=== PATIENT | female | born 1980 | race Caucasian/White ===

== ENCOUNTER 2024-02-03 20:42 | Emergency (ER) | payer BC, SELFPAY ==
[2024-02-03 20:45] VITALS: BP 102/65; PULSE 80; RESP 16; TEMP 35.8; O2SAT 100; BMI 22.9
--- NOTE | 2024-02-03 20:53 | ED.GENADULT ---
HPI - General Adult General Chief complaint: Headache/Migraine Stated complaint: Severe headache Time Seen by Provider: 02/03/24 20:46 History of Present Illness HPI narrative: Pt reports a headache over past two days. Called in to work today because of headache. Needs to work tomorrow and does not want to call in again. Pt reports pain / . Pt has a history of migraines. Pain is over both eyes and creeping down right side of face, pt states this is normal . No reported trauma. 43-year-old woman presenting to the emergency department with concern of a headache. Does have a history of migraines. She reports though history of trigeminal neuralgia as well. Does take Lamictal? This flare though has been going on for a couple of days. She has taken rizatriptan and various [id number] Excedrin products. Also even Tylenol sinus. She is describing sometimes shocking pain in the right face anterior to the ear. Initially was not sure that it was a flare of trigeminal neuralgia but seems to have settled to be more like that. Even gets down into her teeth. The pain is familiar and typically what works is a shot of Toradol. She would like to receive that. No new weakness or loss of sensation elsewhere. Related Data Allergies Allergy/AdvReac Type Severity Reaction Status Date / Time No Known Drug Allergies Allergy Verified 02/03/24 20:50 Review of Systems Status of ROS: Reports: 6 or more systems reviewed and unremarkable except as noted in History and below Exam Narrative: Exam Narrative: Pleasant. Still. NAD otherwise. Cranial nerves 2-12 are intact. No apparent loss of motor also with moving all extremities without difficulty. Sensitive to percussion in the right side of her face posterior to zygoma. No rashes noted. Neck is supple. No trapezial and paracervical muscle tension/pain. Const: Vital Signs, click to edit/add: Vital Signs - 24 hr 02/03/24 20:45 Temperature 96.5 F L Pulse Rate [Left P ulse Oximeter] 80 Respiratory Rate 16 Blood Pressure [Ri ght Upper Arm] 102/65 Pulse Oximetry 100 Oxygen Delivery Me thod Room Air Documenting provider has reviewed patient's vital signs: yes Course Vital Signs Vital signs: Initial Vital Signs Temperature 96.5 F L 02/03/24 20:45 Temperature Source Temporal Artery Scan 02/03/24 20:45 Pulse Rate 80 02/03/24 20:45 Pulse Rhythm Regular 02/03/24 20:45 Respiratory Rate 16 02/03/24 20:45 Blood Pressure 102/65 02/03/24 20:45 Blood Pressure Mean 77 02/03/24 20:45 Blood Pressure Position Sitting 02/03/24 20:45 Pulse Oximetry 100 02/03/24 20:45 Oxygen Delivery Method Room Air 02/03/24 20:45 Vital Signs Temperature 96.5 F L 02/03/24 20:45 Pulse Rate 80 02/03/24 20:45 Respiratory Rate 16 02/03/24 20:45 Blood Pressure 102/65 02/03/24 20:45 Pulse Oximetry 100 02/03/24 20:45 Oxygen Delivery Method Room Air 02/03/24 20:45 Temperature 96.5 F L 02/03/24 20:45 Pulse Rate 80 02/03/24 20:45 Respiratory Rate 16 02/03/24 20:45 Blood Pressure 102/65 02/03/24 20:45 Pulse Oximetry 100 02/03/24 20:45 Oxygen Delivery Method Room Air 02/03/24 20:45 Medications Administered Medications: Discontinued Medications Generic Name Dose Route Start Last Admin Trade Name Freq PRN Reason Stop Dose Admin Dexamethasone 10 mg 02/03/24 21:00 02/03/24 21:08 Dexamethasone 4 Mg Tablet PO 02/03/24 21:01 10 mg ONCE ONE Administration Ketorolac Tromethamine 60 mg 02/03/24 21:00 02/03/24 21:07 Ketorolac 60 Mg/2 Ml Inj IM 02/03/24 21:01 60 mg ONCE ONE Administration Medical Decision Making [facility] Narrative Medical decision making narrative: This discomfort is familiar. At a minimum it is headache. She has treatment for trigeminal neuralgia. Will treat with what she says works. No other red flags noted to suggest intracranial phenomenon. No symptoms otherwise to suggest stroke-like event. It also though offer dexamethasone ingestion to request ketorolac. She feels comfortable leaving the ER after treatment as ?it usually works?. See patient discharge for further discussion. Discharge Plan Discharge Clinical Impression: Headache Patient Disposition: Home, Self-Care Condition: Stable Additional Instructions: Stay well-hydrated. Try to get quality and regular sleep. Return as needed. Follow Up/Referrals: Juanito Santillan MD [Primary Care Provider] - Stand Alone Forms: [facility] Info Instructions
[2024-02-03] MEDS: KETOROLAC 60 MG/2 ML inj IM (21:07)
[2024-02-03] MEDS: dexAMETHasone 4 MG TABLET 10 MG PO (21:08)
== END 2024-02-03 21:22 | disposition home or self-care (01) ==
LOC: ED 21:15
PROVIDERS: Emergency Provider Family Medicine; PCP Family Medicine
DX: R51.9 Headache, unspecified (principal)
CPT/HCPCS: 96372; 99284; A9270; J1885

== ENCOUNTER 2024-03-07 23:33 | Emergency (ER) | payer BC, SELFPAY ==
[2024-03-07 23:37] VITALS: BP 142/82; PULSE 97; RESP 16; TEMP 36.6; O2SAT 98; BMI 23.0
--- NOTE | 2024-03-08 00:14 | ED_ITS ---
HPI - Headache General Date Seen: 03/08/24 Chief Complaint: Headache/Migraine Stated Complaint: headache Time Seen by Provider: 03/07/24 23:39 Source: patient Mode of arrival: ambulatory Limitations: no limitations History of Present Illness HPI Narrative: Patient is a 43-year-old female who presents here with a headache, she describes across her by temporal area, it has been for 2 days, worse when she lays back better when she sits up. She is worried about a possible sinus infection but she has no nasal discharge, no fevers no chills she has no history of trauma, she does get headaches, but this seems to be just a little bit different than her normal headaches, but when I review of the notes, it seems to be much the same. She did try some Tylenol Advil at home. Has not been able to get any relief was unable to really sleep well last night. Denies any numbness tingling neck stiffness fevers chills or sweats, she has no rashes no one else at home is sick. She sometimes does use rizatriptan for this but did not take any today. In the past she has gotten relief from Toradol, and is requesting that today. She has not vomited but says she feels like she might. MD elicited complaint: headache Onset (ago): day(s) Onset description: gradually Location: frontal Severity: severe Quality & Timing: aching and throbbing Relieving factors: rest and dark room Associated symptoms: nausea Related Data Allergies Allergy/AdvReac Type Severity Reaction Status Date / Time No Known Drug Allergies Allergy Verified 03/07/24 23:40 Review of Systems Status of ROS: Reports: 10 or more systems reviewed and unremarkable except as noted in History and below Exam Narrative: Exam Narrative: On examination in room 1, she is nontoxic speaking to me in full sentences very nice lady. Her pupils are equal round reactive to light she does not have nystagmus, TMs bilaterally are normal oropharynx is normal with normal mouth opening, no palpable tenderness noted over her maxillary or frontal sinuses. Nasal mucosa shows no evidence of engorgement or purulence, bilaterally barbosa little bit of a nasal deviation to the left is noted. Cranial nerves 3-12 are normal, her neck is supple full range of motion absence of meningismus there is no lymphadenopathy. Chest is good air entry bilaterally with no wheezing crackles noted her heart sounds are normal, she moves all extremities independently and well right-hand dominant but it fingers nose testing and fine motor movements are normal she is able to walk normally, skin reveals absence of rashes. Const: Vital Signs, click to edit/add: Vital Signs - 24 hr 03/07/24 23:37 Temperature 97.9 F Pulse Rate [Right Pulse Oximeter] 97 Respiratory Rate 16 Blood Pressure [Ri ght Upper Arm] 142/82 H Pulse Oximetry 98 Oxygen Delivery Me thod Room Air Documenting provider has reviewed patient's vital signs: yes Course Vital Signs Vital signs: Initial Vital Signs Temperature 97.9 F 03/07/24 23:37 Temperature Source Temporal Artery Scan 03/07/24 23:37 Pulse Rate 97 03/07/24 23:37 Pulse Rhythm Regular 03/07/24 23:37 Pulse Strength 3+ Normal 03/07/24 23:37 Respiratory Rate 16 03/07/24 23:37 Blood Pressure 142/82 H 03/07/24 23:37 Blood Pressure Mean 102 03/07/24 23:37 Blood Pressure Position Sitting 03/07/24 23:37 Pulse Oximetry 98 03/07/24 23:37 Oxygen Delivery Method Room Air 03/07/24 23:37 Vital Signs Temperature 97.9 F 03/07/24 23:37 Pulse Rate 97 03/07/24 23:37 Respiratory Rate 16 03/07/24 23:37 Blood Pressure 142/82 H 03/07/24 23:37 Pulse Oximetry 98 03/07/24 23:37 Oxygen Delivery Method Room Air 03/07/24 23:37 Temperature 97.9 F 03/07/24 23:37 Pulse Rate 97 03/07/24 23:37 Respiratory Rate 16 03/07/24 23:37 Blood Pressure 142/82 H 03/07/24 23:37 Pulse Oximetry 98 03/07/24 23:37 Oxygen Delivery Method Room Air 03/07/24 23:37 MDM - Headache MDM Narrative Medical decision making narrative: Life-threatening differential diagnosis include subarachnoid hemorrhage, meningitis, encephalitis, carbon monoxide poisoning, and intracerebral hemorrhage. Other differential diagnosis include but not limited to migraine, cluster headache, tension headache, EXTRUDER OPERATOR MULTIPLE vasculitis, mass lesion, temporal arteritis, click acute closed angle glaucoma, septal and trigeminal neuralgia, sinusitis, closed head injury, and stroke She appears well, I do think there is a component of a tension versus migraine headache possibly with sinus dysfunction but I do not see evidence of infectious etiology here. I think it would be reasonable to give her Toradol and also dexamethasone she received this last time along with some Zofran. I think if she uses some nasal corticosteroid. Differential Diagnosis Differential diagnosis: Likely migraine, tension headache, subarachnoid hemorrhage, headache, meningitis, sinusitis and postconcussion syndrome Medical Records Attestation: I reviewed the patient's medical records. Medical records narrative: Reviewed the previous visit here. Discharge Plan Discharge Clinical Impression: Headache, Migraine Patient Disposition: Home, Self-Care Condition: Stable Instructions: Migraine Headache (ED), Tension Headache (ED), Acute Headache (DC) Additional Instructions: Home, rest, consider using Flonase 1 squirt per nostril once a day for the next 2-3 weeks. I do think this is more likely related to her headache, and sinus dysfunction I do not think this is a sinus infection per. You may supplement tomorrow with Tylenol and Advil, follow-up with primary care as needed or back in the ER if increasing headaches, fevers chills neck pain, or signs of infection. May need to consider not working tomorrow, and sleep Activity Level: Light activity Follow Up/Referrals: Juanito Santillan MD [Primary Care Provider] - Stand Alone Forms: [employer] Info Instructions
[2024-03-08] MEDS: ONDANSETRON ODT 4 MG TAB PO (00:19)
[2024-03-08] MEDS: KETOROLAC 30 MG/ML inj IM (00:19)
[2024-03-08] MEDS: dexAMETHasone 4 MG TABLET 10 MG PO (00:24)
== END 2024-03-08 00:30 | disposition home or self-care (01) ==
LOC: ED 03-08 00:14
PROVIDERS: Emergency Provider Family Medicine; PCP Family Medicine
DX: R51.9 Headache, unspecified (principal)
CPT/HCPCS: 96372; 99283; 99284; A9270; J1885

== ENCOUNTER 2024-08-10 04:55 | Emergency (ER) | payer BC, SELFPAY ==
[2024-08-10 04:58] VITALS: BP 121/81; PULSE 96; RESP 16; TEMP 37.3; O2SAT 99; BMI 26.2
--- OUTSIDE RECORDS SUMMARY | 2024-08-10 04:58 | XMS_ITS | Clinical Summary ---
Author Organization [facility] Address [address] [place] [id number] Care Team Providers Care Optical Manufacturing Technician Name Role Phone Clint Stevens MD Primary Care Provider [phone] Allergies Active Allergy Reactions Criticality Noted Date Comments Amoxicillin GI Upset 03/08/2018 Medications pantoprazole (PROTONIX) 20 mg tablet Take 1 Tab by mouth. 06/11/2016 Active DULoxetine (CYMBALTA) 20 mg Delayed-release capsule Take 20 mg by mouth. Active gabapentin (NEURONTIN) 300 mg capsule Take 300 mg by mouth. 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 Gender Identity Not on file Sexual Orientation Not on file Obstetrics History Para Term AB IAB SAB Ectopic Multiple Livin g Live Births 3 2 2 0 1 2 Date Outcome GA Total Labor Labor/2nd/3rd Weight Sex Type Anes PTL Radha A1 A5 Name Clin Term Term AB Last Filed Vital Signs Vital Sign Reading Time Taken Comments Blood Pressure 113/75 11/29/2022 9:52 PM CDT Pulse 65 11/29/2022 9:52 PM CDT Temperature 36.7 C (98 F) 11/29/2022 8:31 PM CDT Respiratory Rate 16 11/29/2022 8:31 PM CDT Oxygen Saturation 98% 11/29/2022 9:52 PM CDT Inhaled Oxygen Concentration - - Weight 64.9 kg (143 lb) 11/29/2022 8:31 PM CDT Height 160 cm (5' 3) 11/29/2022 8:31 PM CDT Body Mass Index 25.33 11/29/2022 8:31 PM CDT Plan of Treatment Health Maintenance Due Date Last Done Comments Tdap 12/28/1990 Depression screening for age 12+ 1991 HIV for age 15-65 12/28/1994 Hepatitis C screening for age 18-79 12/28/1997 Hepatitis B series for 19+ (1 of 3 - 19+ 3-dose series) 12/28/1998 Tetanus booster 1999 Pap test for age 21-65 12/28/2000 BMI (ht and wt on same day) for age 18+ 01/07/2020 01/06/2019, 11/22/2018, 08/27/2018, Additional history exists COVID-19 vaccine series ( season) 2023 04/06/2021, 07/11/2020, 06/13/2020 Influenza Vaccine (Season Ended) 2024 Pneumococcal series for age 6-49 Aged Out No longer eligible based on patient's age to complete this topic Insurance [place] [place] [address] [facility] Care Teams Optical Manufacturing Technician Relationship Specialty Start Date End Date Clint Stevens MD PCP - General Family Practice 07/21/18
--- OUTSIDE RECORDS SUMMARY | 2024-08-10 04:58 | XMS_ITS | Clinical Summary ---
Author Organization [facility] Address [address] [place] [id number] Care Team Providers Care Director Biostatistics Name Role Phone Grace Metz M.D. Primary Care Provider Source Comments Patient records contain information from all sites at [facility]. For routine questions regarding patient records, call [phone] during business hours, M-F 8:00 AM - 5:00 PM Central Time. Record requests for emergency care only can be directed to [phone] at any time.[facility] Allergies Active Allergy Reactions Criticality Noted Date Comments Amoxicillin GI intolerance 03/08/2018 Medications citalopram (CeleXA) 20 mg tablet Take 20 mg by mouth daily. 0 Active omeprazole (PriLOSEC) [address] capsule Take 20 mg by mouth every morning before breakfast. Active topiramate (TOPAMAX) 25 mg tablet Take 25 mg by mouth daily. 2 Active rizatriptan ARCHERY EQUIPMENT HAY SORTER (MAXALT-ARCHERY EQUIPMENT HAY SORTER) [address] 2 TABLETS UNDER THE TONGUE AT ONSET OF HEADACHE. REPEAT AFTER 2 HOURS IF HEADACHE PERSISTS 2 Active ferrous gluconate (FERGON) 324 mg (38 mg iron) tablet TAKE 1 TABLET BY MOUTH ONCE DAILY AT NIGHT AT BEDTIME (WITH VITAMIN TABLET) 3 Active ascorbic acid 500 mg tablet Take 1 tablet by mouth daily. 3 Active cholecalciferol (VITAMIN D3) 125 mcg (5,000 Unit) capsule Take 1 capsule by mouth daily. 3 Active Drysol Dab-O-Matic 20 % external solution USE AT BEDTIME. ONCE SWEATING DECREASES, DECREASE USE TO 1-2 TIMES WEEKLY. 3 Active LORazepam (ATIVAN) 0.5 mg tablet Take 1 tablet (0.5 mg total) by mouth 2 (two) times a day as needed for anxiety for up to 8 days. 15 tablet 4 Active albuterol 90 mcg/actuation inhaler 1-2 puffs every 4-6 hours prn 18 g 1 4 Active gabapentin (Neurontin) 300 mg capsule Take 1 capsule (300 mg total) by mouth 3 (three) times a day for 14 days. 42 capsule 4 Active Active Problems Problem Noted Date Diagnosed Date Trigeminal Neuralgia 03/18/2023 Panic Disorder Episodic Paroxysmal Anxiety 03/18 Resolved Problems Problem Noted Date Diagnosed Date Resolved Date Depression Anxiety 06/11/2016 9 Overview (07/29/2016): Depression Anxiety Gastroesophageal Reflux Disease NOS 06/11/2016 03/18/2023 Encounters Date Type Department Care Team Description 08/09/2024 [facility] Grace Lomas M.D. Screening Lipid; Screening Mammogram Breast Cancer 05/10/2024 Orders Only [facility] Grace Lomas M.D. from Last 3 Months Immunizations Immunization Administration Dates Next Due DTP 10/18/1985 OPV 10/18/1985 SARS-COV-2 (COVID-19) - MODERNA(Discontinued) ,06/13/2020 Tdap 03/16/2013 Family History Medical History Relation Name Comments Coronary artery disease Father Lorenzo Skin cancer Father Lorenzo Anxiety disorder Paternal Grandmother [place] Depression Paternal Grandmother [place] ADD Son Herman Relation Name Status Comments Father Lorenzo Paternal Grandmother [place] Son Herman Social History Tobacco Use Types Packs/Day Years Used Date Smoking Tobacco: Heavy Smoker Cigarettes 1 5.6 Started: 12/21/2018 Smokeless Tobacco: Never Tobacco Cessation:Ready to Q uit: Not Asked; Counseling Given: Not Answered Alcohol Use Standard Drinks/Week Comments Never 0 (1 standard drink = 0.6 oz pur e alcohol) Humiliation, Afraid, Rape, and Kick questionnair e Answer Date Recorded Fear of Current or Ex-Partner No Emotionally Abused No 02/08/2019 Physically Abused No 02/08/2019 Sexually Abused No 02/08/2019 Social Connection and Isolat ion Panel [NHANES] Answer Date Recorded Frequency of Communication w ith Friends and Family More than three times a week 02/08/2019 Frequency of Social Gatherin gs with Friends and Family Once a week 02/08/2019 Attends [employer] Services More than 4 times per year 02/08/2019 Active Member of Clubs or Organizations Yes 02/08/2019 Attends Club or Organization Meetings More than 4 times per year 02/08/2019 Marital Status 02/08/2019 AUDIT-C Answer Date Recorded Frequency of Alcohol Consumption Not on file 11/21/2019 Q2: How many drinks containi ng alcohol do you have on a typical day when you are drinking? 1 or 2 11/21/2019 Q3: How often do you have si x or more drinks on one occasion? Less than monthly 11/21/2019 Overall Financial Resource Strain (CARDIA) Answe r Date Recorded How hard is it for you to pa y for the very basics like food, housing, medical care, and heating? Not hard at all 12/03/2022 PHQ-2 Answer Date Recorded PHQ-2 Score 0 03/18/2023 [facility] of Occupat ional Health - Occupational Stress Questionnaire Answer Date Recorded Do you feel stress - tense, restless, nervous, or anxious, or unable to sleep at night because your mind is troubled all the time - these days? Only a little 11/21/2019 Exercise Vital Sign Answer Date Recorde d On average, how many days pe r week do you engage in moderate to strenuous exercise (like a brisk walk)? 2 days 12/03/2022 On average, how many minutes do you engage in exercise at this level? 30 min 12/03/2022 Hunger Vital Sign Answer Date Recorded Within the past 12 months, y ou worried that your food would run out before you got the money to buy more. Never true 12/04/19 23 Within the past 12 months, t he food you bought just didn't last and you didn't have money to get more. Never true 12/03/2022 PRAPARE - Transportation Answer Date Re corded In the past 12 months, has l ack of transportation kept you from medical appointments or from getting medications? No 11/08 In the past 12 months, has l ack of transportation kept you from meetings, work, or from getting things needed for daily living? No 12/03/2022 Nutrition Answer Date Recorded On average, how many serving s of fruits and vegetables do you eat per day (serving size is equal to 1 cup or approximately the size of a tennis ball)? 0-2 12/03/2022 Dental Answer Date Recorded Dental: Regular Dentist Unknown 11/28/19 Employment Answer Date Recorded Employment status Employed and actively working without restrictions 12/03/2022 Housing Stability Answer Date Recorded What is your living situation today? I have a [facility] place to live 12/03/2022 Education Answer Date Recorded What is the highest level of school you have completed or the highest degree you have received? Some college, no degree 02/08/2019 Comments Unknown Sex and Gender Information Value Date Recorded Sex Assigned at Female 12/03/2022 12:53 PM CDT Legal Sex Female 6:44 AM BILINGUAL MEDICAL ASSISTANT Gender Identity Female 11/21/2019 8:51 AM CDT Sexual Orientation Straight 11/21/2019 8: 51 AM CDT Last Filed Vital Signs Vital Sign Reading Time Taken Comments Blood Pressure 111/82 11/18/2023 7:30 PM CDT Pulse 64 11/18/2023 8:20 PM CDT Temperature 36.7 C (98.1 F) 11/18/2023 7:26 PM CDT Respiratory Rate 16 06/25/2023 3:37 PM CDT Oxygen Saturation 97% 11/18/2023 8:2 0 PM CDT Inhaled Oxygen Concentration - - Weight 61.6 kg (135 lb 12.9 oz) 11/18/2023 7:26 PM CDT Height 157.8 cm (5' 2.13) 03/18/2023 3 :24 PM BILINGUAL MEDICAL ASSISTANT without shoes Body Mass Index 24.74 03/18/2023 3:24 PM BILINGUAL MEDICAL ASSISTANT Plan of Treatment Health Maintenance Due Date Last Done Comments Cervical/Vaginal Cancer Screening 1979 HIV Screening 1979 Hepatitis C Screening 1979 Lipid (Cholesterol) Screening 1979 IPV Vaccines (2 of 3 - 4-dos e series) 11/15/1985 10/18/1985 Hepatitis B Vaccines (1 of 3 - 19+ 3-dose series) 12/28/1998 Pneumococcal vaccine (0-49 years) (1 of 2 - PCV) 12/28/1998 Mammogram 10/29/2016 10/30/2015 COVID-19 Vaccine (4 - 2023-2 5 season) 2023 04/06/2021, 07/11/2020, 06/13/2020 Influenza Vaccine (#1) 2023 , 12/08/2020, 12/14/2019 Depression Screening (Annual PHQ-2) 03/09/2024 Tobacco Cessation counseling 10/20/2024, 03/18/2023 DTaP,Tdap,and Td Vaccines (4 - Td or Tdap) 01/08/2031 01/08/2021, 03/16/2013, 10/18/1985 HPV Vaccines Aged Out No longer eligi ble based on patient's age to complete this topic [place] [address] [facility] Care Teams Director Biostatistics Relationship Specialty Start Date End Date Grace Metz M.D. NPVivian: [id number] [address] [place] [id number] PCP - General Family Medicine 12/10/22
--- OUTSIDE RECORDS SUMMARY | 2024-08-10 04:58 | XMS_ITS | Clinical Summary ---
Author Organization [facility] Address [address] , [address] [place] [address] Phone Care Team Providers Care Claims Account Specialist Name Role Phone Thursday Solitario GILBERT [phone] Conditions or Problems Problem Name Problem Code Onset Date Status Entry Date Provider Comment Standard Description Annotate Dizziness [id number] (SNOMED CT) 11/12 Active 11/12 Xiomara Du APRN, CNP Dizziness New daily persistent headache [id number] 05 (SNOMED CT) 11/12 Active 11/12 Xiomara Du APRN SHOE STAMPER New daily persistent headache Sleep deprivation 184019583 (SNOMED CT) 03/12 Active 03/12 Solitario Thursday Sleep deprivation Restless leg syndrome 25917693 (SNOMED CT) 03/12 Active 03/12 Solitario Thursday Restless legs Iron deficiency 53489452 (SNOMED CT) 03/12 Active 03/12 Solitario Thursday Iron deficiency Periodic limb movement disorder 316067117 (SNOMED CT) 10/30 Active Solitario Thursday Periodic limb movement disorder Obstructive sleep apnea 06068620 (SNOMED CT) 10/30 Active Solitario Thursday Obstructive sleep apnea syndrome Sleep apnea, evaluation 271832148 (SNOMED CT) 09/25 Active 09/25 Nubia PEREZ-Jordana Procedure carried out on subject Insomnia 343519157 (SNOMED CT) 09/25 Active 09/25 Nubia Aguilar PA-C Insomnia Trigeminal neuralgia 95930059 (SNOMED CT) 07/26 Active 07/26 Chris Carrillo MD Trigeminal neuralgia Medications Medication Instructions Start Date Stop Date Generic Name NDC Provider TOPIRAMATE 50 MG TABS Take 1 tablet by mouth twice a day topiramate [id number] Ria milagros PEREZ-C TOPIRAMATE 50 MG TABS Take 1 tablet by mouth twice daily topiramate 13658446116 Ria Patelrashaadmayra PA-C TOPIRAMATE 50 MG TABS Take 1 tablet by mouth twice a day topiramate 44652408774 Chris Carrillo MD TOPIRAMATE 25 MG TABS Take 2 tablet by mouth once a day topiramate 04111145263 Yoana Stone RN, BSN TOPIRAMATE 25 MG TABS Take 1 tablet by mouth once a day TAKE ONE TABLET BY MOUTH ONCE DAILY topiramate 47760986404 Riabob Isaacs PA-C TOPIRAMATE 25 MG TABS Take 2 tablet by mouth once a day topiramate 69932045106 Ria Merashaadmayra PA-C FERROUS GLUCONATE 324 (38 Fe) MG TABS TAKE 1 TABLET BY MOUTH ONCE DAILY AT NIGHT AT BEDTIME (WITH VITAMIN TABLET) ferrous gluconate 91467643825 Tacjana Thursday FERROUS GLUCONATE 324 (38 Fe) MG TABS TAKE 1 TABLET BY MOUTH ONCE DAILY AT NIGHT AT BEDTIME ferrous gluconate 04942492688 Ria rashaadmayra PA-C TOPIRAMATE 25 MG TABS Take 1 tablet by mouth once a day TAKE ONE TABLET BY MOUTH ONCE DAILY topiramate 56827241924 Chris Carrillo MD FERROUS GLUCONATE 324 (38 Fe) MG TABS TAKE ONE TABLET BY MOUTH EVERY NIGHT AT BEDTIME (WITH VITAMIN TABLET) ferrous gluconate 33103352079 Tacjana Thursday FERROUS GLUCONATE 324 (38 Fe) MG TABS TAKE 1 TABLET BY MOUTH ONCE DAILY AT NIGHT AT BEDTIME (WITH VITAMIN TABLET) ferrous gluconate 08412434535 Solitario Thursday Vitamin C 500 mg tablet Take 1 tablet by mouth at bedtime ascorbic acid (vitamin c) 58750759252 armando Thursday FERROUS GLUCONATE 324 (38 Fe) MG TABS TAKE ONE TABLET BY MOUTH EVERY NIGHT AT BEDTIME (WITH VITAMIN TABLET) ferrous gluconate 00631547956 Solitario Thursday PREDNISONE 20 MG TABS prednisone 35602613510 Nubia Aguilar PA-C DIAZEPAM 5 MG TABS Take 5 mg 30 minutes prior to MRI. May repeat once. Must have a limo driver to and from test. diazepam 80837696552 Chris Carrillo MD TOPIRAMATE 25 MG TABS TAKE ONE TABLET BY MOUTH ONCE DAILY topiramate 38531309160 Chris Carrillo MD PREDNISONE 20 MG TABS prednisone 34876992398 Chris Carrillo MD CITALOPRAM HYDROBROMIDE 20 MG TABS citalopram 03298611861 Chris Carrillo MD Medications Administered No information available. Allergies, Adverse Reactions, Alerts Allergy Name Reaction Description Start Date Severity Statu s Provider AMOXICILLIN GI Upset Mild Active Chris Carrillo MD Results Date Name Value Unit Range Flag Description Office Visit: Office Visit F acial Pain mail SMOK STATUS current every day smoker Tobacco smoking status Internal Other: Verbal Autho rization/Emergency Contact - OBS VERBAL_EMER DONE Verbal au thorization and emergency contact Internal Other: Authorizatio n - OBS [email or web address] Yes Authoriza tion: Release of Information - Authorize [facility] - Payment and Healthcare Operations ROIAUTHOTHER Yes Authoriz ation: Release of Information - Authorize Others/Insurance - Payment and Healthcare Operations [email or web address] Yes Authorizat ion: Authorization for [facility] to leave messages, voicemail, send text messages, send emails AUTHRELHCARE Yes Authoriz ation: Release/Retrieval of Information to/from Healthcare Facilities, Pharmacy Benefit Payers and Providers AUTHPRIVPRAC Yes Authoriz ation: Notice of privacy practices AUTHBENEFIT Yes Authoriza tion: Assignment of Benefits and Payment Agreement Internal Other: Observation data from Authorization.pdf HIECONSENT Y Consent To Release information to the Health Information Exchange ([employer]) Telemedicine: Telemedicine V isit 3-4 mo flup mail MEDS REVIEW Done Documenta tion of current medications (procedure) Plan of Care Type Date Detail Pending order Follow up Sleep Pending order Follow up Sleep Pending order Ferritin Serum Pending order CPAP Order Pending order Patient Instruct ions Pending order Follow up Sleep Pending order CPAP Order Pending order Ferritin Serum Pending order Patient Instruct ions Pending order Follow up Sleep LIZZIE Pending order Follow up LIZZIE in clinic or telemedicine Pending order MRI-Brain W/O Pending order MRI-Brain W/O Pending order Iron Sucrose Inf usion Protocol for RLS Pending order Iron Sucrose Inf usion Protocol for RLS Pending Order exclud ed from report: Pending order Iron Sucrose Inf usion Protocol for RLS Pending order Ferritin Serum Pending order Patient Instruct ions Pending order Follow up in cli jermaine or telemedicine Pending order Ferritin Serum Pending order Iron & Total Iro n-binding Capacity (TIBC) Pending order Instructions for Staff Pending order Sleep Dentist Re ferral Pending order Sleep Consult Pending order Sleep Study - AP NA Pending order Follow up LIZZIE in clinic or telemedicine Pending order MRI-Brain W/WO Pending order Patient Instruct ions Procedures Code Procedure Name Date Entry Date ORDERS Follow up Sleep ORDERS Ferritin Serum ORDERS Patient Instructions ORDERS CPAP Order ORDERS Iron Sucrose Infusion Protocol for RLS 20 29/09/10 ORDERS Follow up Sleep LIZZIE ORDERS CPAP Order ORDERS Patient Instructions ORDERS Ferritin Serum [id number]-[id number] Documentation of current medicatio ns ORDERS Follow up LIZZIE in clinic or telemedicine ORDERS Iron Sucrose Infusion Protocol for RLS 20 29/07/00 ORDERS Ferritin Serum SCT-[id number] Documentation of current medicatio ns ORDERS Patient Instructions ORDERS Follow up in clinic or telemedicine 04/01 ORDERS Sleep Consult ORDERS Instructions for Staff 01/10 [id number] Sleep Dentist Referral 2021 ORDERS Ferritin Serum ORDERS Iron & Total Iron-binding Capacity (TIBC) ORDERS Sleep Study - APNA 0 CPT-52724 PSG, 4+ parameters w / tech - 6yrs or older (54130) ORDERS Follow up LIZZIE in clinic or telemedicine 2 CPT-T9658U ProHance Gadolinium- based MR Contrast - 15 ml vial CPT-08321 MRI Brain W/WO CPT-T8498D ProHance Gadolinium- based MR Contrast - 15 ml vial [id number] MRI-Brain W/WO [facility]-[id number] Documentation of current medicatio ns ORDERS Patient Instructions Vital Signs Date Name Value Unit Description Weight Measured 140 [lb_av] weight E& M Weight Measured 140 [lb_av] weight E& M Immunizations No information available. Advance Directives No information available.
--- OUTSIDE RECORDS SUMMARY | 2024-08-10 04:58 | XMS_ITS | Encounter Summary ---
Author Organization [facility] Address [address] [place] [address] Care Team Providers Care Program Coordinator Executive Education Name Role Phone Grace Metz M.D. Primary Care Provider Reason for Referral * Outpatient (Routine) - Authorized Specialty Diagnoses / Procedures Referred By Contac t Referred To Contact Diagnoses Screening Mammogram Breast Cancer Procedures BI Breast Screening Bilateral with Tomosynthesis Grace Metz M.D. [address], [place] [address] Phone: tel: fax: [facility] Referral ID Status Reason Start Date Expiration Date V isits Requested Visits Authorized [id number] Authorized 08/09/2024 11/09/2025 1 1 Encounter Details Date Type Department Care Team (Late st Contact Info) Description 08/09/2024 Orders Only [facility] Grace Metz M.D. [address] [place] [address] Screening Lipid; Screening Mammogram Breast Cancer Social History Tobacco Use Types Packs/Day Years Used Date Smoking Tobacco: Heavy Smoker Cigarettes 1 5.6 Started: 12/21/2018 Smokeless Tobacco: Never Alcohol Use Standard Drinks/Week Comments Never 0 [...] and Family Once a week 02/08/2019 Attends Confuc[employer]ism Services More than 4 times per year [...] Answer Date Recorded PHQ-2 Score 0 03/18/2023 [facility] - Occupational Stress [...] your living situation today? I have a [facility] place to live 12/03/2022 Education Answer Date Recorded What is the highest level of school you have completed or the highest degree you have received? Some college, no degree 02/08/2019 Comments Unknown Sex and Gender Information Value Date Recorded Sex Assigned at Female 12/03/2022 12:53 PM CDT Legal Sex Female 6:44 AM [employer]AST[employer] Gender Identity Female 11/21/2019 8:51 AM CDT Sexual Orientation Straight 11/21/2019 8: 51 AM CDT documented as of this encounter Plan of Treatment Scheduled Orders Name Type Priority Associated Diagnoses Order Schedule Lipid Panel Lab Routine Screening Lipid Expected: 08/23/2024, Expires: 01/26/2025 BI Breast Screening Bilateral with Tomosynthesis Imaging RAD - Routine (most inpatients and all outpatients) Screening Mammogram Breast Cancer Expected: 08/23/2024, Expires: 01/26/2025 documented as of this encounter Visit Diagnoses Diagnosis Screening Lipid Screening Mammogram Breast Cancer documented in this encounter Care Teams Program Coordinator Executive Education Relationship Specialty Start Date End Date Grace Metz M.D. [address] [place] [id number] PCP - General Family Medicine 12/10/22 documented as of this encounter
--- OUTSIDE RECORDS SUMMARY | 2024-08-10 04:58 | XMS_ITS | Clinical Summary ---
Author Organization [facility] Address [address] [place] [address] Care Team Providers Care Counselor At Law Name Role Phone Clint Stevens MD Primary Care Provider [phone] Social History Tobacco Use Types Packs/Day Years Used Date Smoking Tobacco: Never Assessed Adolescent Education Answer Date Record ed Getting School Help Needed Not on file 11/28 Comments Unknown Sex and Gender Information Value Date Recorded Sex Assigned at Not on file Legal Sex Female 10:51 AM CDT Gender Identity Not on file Sexual Orientation Not on file Plan of Treatment Health Maintenance Due Date Last Done Comments ADVANCE CARE PLANNING 1979 ANNUAL REVIEW OF HM ORDERS 1979 DIABETES SCREENING 1979 YEARLY PREVENTIVE VISIT 12/28/1982 HIV SCREENING 12/28/1994 HEPATITIS C SCREENING 12/28/1997 HEPATITIS B VACCINE (1 of 3 - 19+ 3-dose series) 12/28/1998 PAP 12/28/2000 LIPID 2019 COVID-19 VACCINE (4 - 2023-2 5 season) 2023 04/06/2021, 07/11/2020, 06/13/2020 PHQ-2 (once per calendar year) 2024 MAMMO SCREENING 10/17/2024 10/17/2022, 03/06/2020, 10/30/2015 INFLUENZA VACCINE (Season Ended) 2024 12/08/2020, 12/14/2019 ZOSTER VACCINE (1 of 2) 12/28/2029 DTAP/TDAP/TD VACCINE (4 - Td or Tdap) 01/08/2031 01/08/2021, 03/16/2013, 10/18/1985 HPV VACCINE Aged Out No longer eligi ble based on patient's age to complete this topic MENINGITIS VACCINE Aged Out No longer eligible based on patient's age to complete this topic PNEUMOCOCCAL VACCINE: PEDIATRICS (0 to 5 YEARS) AND AT-RISK PATIENTS (6 to 49 YEARS) Aged Out No longer eligible b ased on patient's age to complete this topic Procedures Procedure Name Priority Date/Time Associated Diagnosis Comments MA SCREENING DIGITAL BILATERAL Routine 10/17/2022 10:50 AM CDT Healthcare maintenance from Last 3 Months or Most Recently Relevant to Health Maintenance Results * MA Screening Digital Bilateral (10/17/2022 10:50 AM CDT) Anatomical Region Laterality Modality Breast Bilateral Mammography Impressions 10/17/2022 1:54 PM CDT IMPRESSION: ACR BI-RADS Category 1: Negative RECOMMENDED FOLLOW-UP: Annual routine screening mammogram The results and recommendations of this examination will be communicated to the patient. Angela Cadet MD Narrative 10/17/2022 1:54 PM CDT BILATERAL FULL FIELD DIGITAL SCREENING MAMMOGRAM Performed on: 10/17/22 Compared to: 03/06/2020 and 10/30/2015 Technique: This study was evaluated with the assistance of Computer-Aided Detection. Findings: The breasts have scattered areas of fibroglandular density. There is no radiographic evidence of malignancy. us Isaias Watson MD IMG MAMMOGRAPHY ORDERA BLES Final Result from Last 3 Months or Most Recently Relevant to Health Maintenance Care Teams Counselor At Law Relationship Specialty Start Date End Date Clint Stevens MD [facility] [address] [place] [address] PCP - General Family Practice 10/30/15
--- NOTE | 2024-08-10 05:23 | ED.GENADULT ---
HPI - General Adult General Date Seen: 08/10/24 Chief complaint: Sore Throat Stated complaint: Cough chills, body ache Time Seen by Provider: 08/10/24 05:05 History of Present Illness HPI narrative: Patient is a 43-year-old woman who says she has been sick since yesterday with sore throat, ear pain, little bit of a cough, low-grade fever she thinks, she is worried she might have strep throat or tonsillitis. Related Data Home Medications ?Medication ?Instructions ?Recorded ?Confirmed dextromethorphan-guaifenesin 30 1 tab PO Q12H 05/31/24 05/31/24 mg-600 mg tablet extended [id number] hr (Mucinex DM) ascorbic acid (vitamin C) 500 mg 500 mg PO DAILY 08/10/24 08/10/24 chewable tablet (Vitamin C) cholecalciferol (vitamin D3) 125 125 mcg PO DAILY 08/10/24 08/10/24 mcg (5,000 unit) capsule citalopram 20 mg tablet 20 mg PO DAILY 08/10/24 08/10/24 ferrous gluconate 324 mg (38 mg 324 mg PO QPM 08/10/24 08/10/24 iron) tablet lorazepam 0.5 mg tablet 0.5 mg PO BID-TID anxiety 08/10/24 08/10/24 topiramate 25 mg tablet 50 mg PO DAILY 08/10/24 08/10/24 Previous Rx's ?Medication ?Instructions ?Recorded benzonatate 200 mg capsule 200 mg PO BID PRN cough #14 caps 05/31/24 Allergies Allergy/AdvReac Type Severity Reaction Status Date / Time No Known Drug Allergies Allergy Verified 05/31/24 18:26 Review of Systems Status of ROS: Reports: 6 or more systems reviewed and unremarkable except as noted in History and below Exam Narrative: Exam Narrative: Vital signs reviewed In general, alert, nontoxic middle-age woman. Breathing easily, voice normal. Head: Normocephalic, atraumatic. Eyes: Sclera clear. Pupils equal and reactive. ENT: Mucous membranes moist. Throat is normal. TMs normal bilaterally. Neck: Supple without adenopathy. No stridor. Heart: Regular rate and rhythm without murmur. Lungs: Clear. No increased work of breathing, crackles or wheezes. Neurologic: Alert, conversant. Speech fluent, face symmetric. Moves all extremities equally. Skin: Warm, dry well perfused. Affect: Normal. Const: Vital Signs, click to edit/add: Vital Signs - 24 hr 08/10/24 04:58 Temperature 99.2 F Pulse Rate [Pulse Oximeter] 96 Respiratory Rate 16 Blood Pressure [Ri ght Upper Arm] 121/81 Pulse Oximetry 99 Oxygen Delivery Me thod Room Air Course Course ED Course: Strep, COVID, RSV and influenza swabs pending. Reviewed with her no evidence of tonsillitis or abscess in the throat. If strep is negative and symptoms are likely viral and would recommend supportive care with ibuprofen and/or Tylenol ongoing, hydration, rest, she can use throat lozenges or topical medications for throat pain as well if needed. Did give her shot of Toradol 30 mg IM here to help with throat pain. Strep swab is negative. Viral swab pending at this time but reasonable to send her home with supportive care, will call with results of the viral swab positive. Reviewed reasons to return such as severe pain inability to swallow secretions, other worsening or new symptoms. Primary care follow-up if not starting to improve in 7-10 days. Vital Signs Vital signs: Initial Vital Signs Temperature 99.2 F 08/10/24 04:58 Temperature Source Temporal Artery Scan 08/10/24 04:58 Pulse Rate 96 08/10/24 04:58 Respiratory Rate 16 08/10/24 04:58 Blood Pressure 121/81 08/10/24 04:58 Blood Pressure Mean 94 08/10/24 04:58 Blood Pressure Position Sitting 08/10/24 04:58 Pulse Oximetry 99 08/10/24 04:58 Oxygen Delivery Method Room Air 08/10/24 04:58 Vital Signs Temperature 99.2 F 08/10/24 04:58 Pulse Rate 96 08/10/24 04:58 Respiratory Rate 16 08/10/24 04:58 Blood Pressure 121/81 08/10/24 04:58 Pulse Oximetry 99 08/10/24 04:58 Oxygen Delivery Method Room Air 08/10/24 04:58 Temperature 99.2 F 08/10/24 04:58 Pulse Rate 96 08/10/24 04:58 Respiratory Rate 16 08/10/24 04:58 Blood Pressure 121/81 08/10/24 04:58 Pulse Oximetry 99 08/10/24 04:58 Oxygen Delivery Method Room Air 08/10/24 04:58 Medications Administered Medications: Generic Name Dose Route Start Last Admin Trade Name Richardsonq PRN Reason Stop Dose Admin Ketorolac Tromethamine 30 mg 08/10/24 05:11 08/10/24 05:40 Ketorolac 30 Mg/Ml Inj IM 08/10/24 05:12 30 mg ONCE ONE Administration Medical Decision Making Lab Data Labs: Lab Results 08/10/24 Range/Units 05:05 Group A Strep DNA NOT DETECTED (Not Detectd) Discharge Plan Discharge Clinical Impression: Pharyngitis Patient Disposition: Home, Self-Care Condition: Stable Instructions: Pharyngitis (ED) Additional Instructions: Your strep test is negative. Symptoms are therefore most likely viral. Your viral swab is not back yet, but we can call you with those results. There is no evidence of tonsillitis or abscess on your exam today. I would recommend continued use of ibuprofen and Tylenol, these work best if taken together, 1000 mg of Tylenol and 400 mg of ibuprofen 3 times daily with food. Throat lozenges or throat sprays can be helpful as well. If you feel you are getting worse, cannot swallow saliva, or develop other new symptoms, return to the ER at any time for re-evaluation. Follow-up with primary care if you do not feel you are getting better in 7-10 days. Prescriptions: No Action Mucinex DM 30-600 mg tablet extended release 12 hr 1 tab PO Q12H benzonatate 200 mg capsule 200 mg PO BID PRN (Reason: cough) Qty: 14 0RF topiramate 25 mg tablet 50 mg PO DAILY citalopram 20 mg tablet 20 mg PO DAILY lorazepam 0.5 mg tablet 0.5 mg PO BID-TID ascorbic acid (vitamin C) [Vitamin C] 500 mg tablet,chewable 500 mg PO DAILY cholecalciferol (vitamin D3) 125 mcg (5,000 unit) capsule 125 mcg PO DAILY ferrous gluconate 324 mg (38 mg iron) tablet 324 mg PO QPM Follow Up/Referrals: Provider,Not a Local [Primary Care Provider, Family Practice] Stand Alone [facility]: [facility] Info Instructions
--- OUTSIDE RECORDS SUMMARY | 2024-08-10 05:36 | XMS_ITS | Clinical Summary ---
Author Organization [facility] Address [address] [facility] , [address] [place] [address] Phone Care Team Providers Care Lead Teller Name Role Phone Thursday Solitario GILBERT [phone] Conditions or Problems Problem Name Problem Code Onset Date Status Entry Date Provider Comment Standard Description Annotate Dizziness 739950387 (SNOMED CT) 11/12 Active 11/12 Xiomara Du APRN, CNP Dizziness New daily persistent headache 1292254536832 05 (SNOMED CT) 11/12 Active 11/12 Xiomara Du APRN CIRCUIT BOARD REPAIR TECHNICIAN New daily persistent headache Sleep deprivation 074058546 (SNOMED CT) 03/12 Active 03/12 Solitario Thursday Sleep deprivation Restless leg syndrome 79016103 (SNOMED CT) 03/12 Active 03/12 Solitario Thursday Restless legs Iron deficiency 54704914 (SNOMED CT) 03/12 Active 03/12 Solitario Thursday Iron deficiency Periodic limb movement disorder 221191161 (SNOMED CT) 10/30 Active Solitario Thursday Periodic limb movement disorder Obstructive sleep apnea 54422426 (SNOMED CT) 10/30 Active Solitario Thursday Obstructive sleep apnea syndrome Sleep apnea, evaluation 090424614 (SNOMED CT) 09/25 Active 09/25 Nubia PEREZ-Jordana Procedure carried out on subject Insomnia 451545503 (SNOMED CT) 09/25 Active 09/25 Nubia Aguilar PA-C Insomnia Trigeminal neuralgia 59283304 (SNOMED CT) 07/26 Active 07/26 Chris Carrillo MD Trigeminal neuralgia Medications Medication Instructions Start Date Stop Date Generic Name NDC Provider TOPIRAMATE 50 MG TABS Take 1 tablet by mouth twice a day topiramate 24179710681 Ria milagros PEREZ-C TOPIRAMATE 50 MG TABS Take 1 tablet by mouth twice daily topiramate 77866168369 Ria Patelrashaadmayra PA-C TOPIRAMATE 50 MG TABS Take 1 tablet by mouth twice a day topiramate 36108054813 Chris Carrillo MD TOPIRAMATE 25 MG TABS Take 2 tablet by mouth once a day topiramate 36930677534 Yoana Stone RN, BSN TOPIRAMATE 25 MG TABS Take 1 tablet by mouth once a day TAKE ONE TABLET BY MOUTH ONCE DAILY topiramate 75233002276 Riabob Isaacs PA-C TOPIRAMATE 25 MG TABS Take 2 tablet by mouth once a day topiramate 09666101106 Ria Merashaadmayra PA-C FERROUS GLUCONATE 324 (38 Fe) MG TABS TAKE 1 TABLET BY MOUTH ONCE DAILY AT NIGHT AT BEDTIME (WITH VITAMIN TABLET) ferrous gluconate 79312062876 Tacjana Thursday FERROUS GLUCONATE 324 (38 Fe) MG TABS TAKE 1 TABLET BY MOUTH ONCE DAILY AT NIGHT AT BEDTIME ferrous gluconate 22581345871 Ria rashaadmayra PA-C TOPIRAMATE 25 MG TABS Take 1 tablet by mouth once a day TAKE ONE TABLET BY MOUTH ONCE DAILY topiramate 22818254320 Chris Carrillo MD FERROUS GLUCONATE 324 (38 Fe) MG TABS TAKE ONE TABLET BY MOUTH EVERY NIGHT AT BEDTIME (WITH VITAMIN TABLET) ferrous gluconate 60653170342 Tacjana Thursday FERROUS GLUCONATE 324 (38 Fe) MG TABS TAKE 1 TABLET BY MOUTH ONCE DAILY AT NIGHT AT BEDTIME (WITH VITAMIN TABLET) ferrous gluconate 16274517154 Solitario Thursday Vitamin C 500 mg tablet Take 1 tablet by mouth at bedtime ascorbic acid (vitamin c) 90048542574 armando Thursday FERROUS GLUCONATE 324 (38 Fe) MG TABS TAKE ONE TABLET BY MOUTH EVERY NIGHT AT BEDTIME (WITH VITAMIN TABLET) ferrous gluconate 45218037217 Solitario Thursday PREDNISONE 20 MG TABS prednisone 80065446537 Nubia Aguilar PA-C DIAZEPAM 5 MG TABS Take 5 mg 30 minutes prior to MRI. May repeat once. Must have a ice delivery driver to and from test. diazepam 24108908313 Chris Carrillo MD TOPIRAMATE 25 MG TABS TAKE ONE TABLET BY MOUTH ONCE DAILY topiramate 59281779460 Chris Carrillo MD PREDNISONE 20 MG TABS prednisone 35305444952 Chris Carrillo MD CITALOPRAM HYDROBROMIDE 20 MG TABS citalopram 89404493484 Chris Carrillo MD Medications Administered No information [...] Release information to the Health Information Exchange ([employer]) Telemedicine: Telemedicine V isit 3-4 mo flup [...] Order ORDERS Patient Instructions ORDERS Ferritin Serum [id number]-[id number] Documentation of current medicatio ns ORDERS Follow up LIZZIE in clinic or telemedicine ORDERS Iron Sucrose Infusion Protocol for RLS 20 29/07/00 ORDERS Ferritin Serum [id number]-[id number] Documentation of current medicatio ns ORDERS Patient Instructions ORDERS Follow up in clinic or telemedicine 04/01 ORDERS Sleep Consult ORDERS Instructions for Staff 01/10 [id number] Sleep Dentist Referral 2021 ORDERS Ferritin Serum ORDERS Iron & Total Iron-binding Capacity (TIBC) ORDERS Sleep Study - [facility] 0 CPT-32532 PSG, 4+ parameters w / tech - 6yrs or older (52419) ORDERS Follow up LIZZIE in clinic or telemedicine 2 CPT-D4606N ProHance Gadolinium- based MR Contrast - 15 ml vial CPT-91524 MRI Brain W/WO CPT-Y9993I ProHance Gadolinium- based MR Contrast - 15 ml vial [id number] MRI-Brain W/WO [facility]-[id number] Documentation of current medicatio ns ORDERS Patient Instructions Vital Signs Date Name Value Unit Description Weight Measured 140 [lb_av] weight E& M Weight Measured 140 [lb_av] weight E& M Immunizations No information available. Advance Directives No information available.
[2024-08-10 05:40] LABS: Strep A DNA Probe* NOT DETECTED (Not Detectd)
[2024-08-10] MEDS: KETOROLAC 30 MG/ML inj IM (05:40)
[2024-08-10 05:53] LABS: PCR FLU A Negative PCR FLU A (Negative); PCR FLU B Negative PCR FLU B (Negative); PCR RSV Negative PCR RSV (Negative); SARS PCR* Negative SARS-CoV-2 (Negative)
== END 2024-08-10 06:00 | disposition home or self-care (01) ==
PROVIDERS: Emergency Provider Emergency Medicine
DX: J02.9 Acute pharyngitis, unspecified (principal)
CPT/HCPCS: 87637; 87651; 96372; 99283; 99284; J1885

== ENCOUNTER 2024-09-12 10:21 | Emergency (ER) | payer BC, SELFPAY ==
--- OUTSIDE RECORDS SUMMARY | 2024-09-12 10:24 | XMS_ITS | Encounter Summary ---
Author Organization [facility] Address [address] [place] [address] Care Team Providers Care Petrographer Name Role Phone Grace Metz M.D. Primary Care Provider Reason for Referral * Outpatient (Routine) - Authorized Specialty Diagnoses / Procedures Referred By Contac t Referred To Contact Diagnoses Screening Mammogram Breast Cancer Procedures BI Breast Screening Bilateral with Tomosynthesis Grace Metz M.D. [address] [address] Phone: tel: fax: [facility] Referral ID Status Reason Start Date Expiration Date V isits Requested Visits Authorized [id number] Authorized 08/09/2024 11/09/2025 1 1 Encounter Details Date Type Department Care Team (Late st Contact Info) Description 08/09/2024 Orders Only [facility] Grace Metz M.D. [address] [place] [address] Screening Lipid; Screening Mammogram Breast Cancer Social History Tobacco Use Types Packs/Day Years Used Date Smoking Tobacco: Heavy Smoker Cigarettes 1 5.7 Started: 12/21/2018 Smokeless Tobacco: Never Alcohol Use Standard Drinks/Week Comments Never 0 (1 standard drink = 0.6 oz pur e alcohol) Humiliation, Afraid, Rape, and Kick questionnair e Answer Date Recorded Fear of Current or Ex-Partner No Emotionally Abused No 02/08/2019 Physically Abused No 02/08/2019 Sexually Abused No 02/08/2019 Hunger Vital Sign Answer Date Recorded Within [...] things needed for daily living? No 12/03/2022 Housing Stability Answer Date Recorded What is your living situation today? I have a [facility] place to live 12/03/2022 Education Answer Date Recorded What is the highest level of school you have completed or the highest degree you have received? 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 DONOVAN: [phone] [address], [place] [address] PCP - General Family Medicine 12/10/22 documented as of this encounter
--- OUTSIDE RECORDS SUMMARY | 2024-09-12 10:24 | XMS_ITS | Clinical Summary ---
Author Organization [facility] Address [address] [facility] , [address] [place] [address] Phone Care Team Providers Care Software Systems Engineer Name Role Phone System Maintenance Unavailable [phone] Conditions or Problems Problem Name Problem Code Onset Date Status Entry Date Provider Comment Standard Description Annotate Dizziness 947695874 (SNOMED CT) 11/12 Active 11/12 Xiomara Du APRN, CNP Dizziness New daily persistent headache 2414155777061 05 (SNOMED CT) 11/12 Active 11/12 Xiomara Du APRN, CNP New daily persistent headache Sleep deprivation 935716584 (SNOMED CT) 03/12 Active 03/12 Solitario Thursday Sleep deprivation Restless leg syndrome 69556942 (SNOMED CT) 03/12 Active 03/12 Solitario Thursday Restless legs Iron deficiency 05793822 (SNOMED CT) 03/12 Active 03/12 Solitario Thursday Iron deficiency Periodic limb movement disorder 229800293 (SNOMED CT) 10/30 Active Solitario Thursday Periodic limb movement disorder Obstructive sleep apnea 54880464 (SNOMED CT) 10/30 Active Solitario Thursday Obstructive sleep apnea syndrome Sleep apnea, evaluation 030892953 (SNOMED CT) 09/25 Active 09/25 Nubia Aguilar PA-C Procedure carried out on subject Insomnia 928396674 (SNOMED CT) 09/25 Active 09/25 Nubia PEREZ-C Insomnia Trigeminal neuralgia 71829467 (SNOMED CT) 07/26 Active 07/26 Chris Carrillo MD Trigeminal neuralgia Medications Medication Instructions Start Date Stop Date Generic Name NDC Provider TOPIRAMATE 50 MG TABS Take 1 tablet by mouth twice daily topiramate 85625222809 Kelsey PEREZ-Jordana TOPIRAMATE 50 MG TABS Take 1 tablet by mouth once daily topiramate 93596585057 Kelsey PEREZ-Jordana TOPIRAMATE 50 MG TABS Take 1 tablet by mouth twice a day topiramate 03672442933 Ria PEREZ-Jordana TOPIRAMATE 50 MG TABS Take 1 tablet by mouth twice daily topiramate 07830386397 Ria PEREZ-C TOPIRAMATE 50 MG TABS Take 1 tablet by mouth twice a day topiramate 15560777994 Chris Carrillo MD TOPIRAMATE 25 MG TABS Take 2 tablet by mouth once a day topiramate 16113740343 Yoana Stone RN, BSN TOPIRAMATE 25 MG TABS Take 1 tablet by mouth once a day TAKE ONE TABLET BY MOUTH ONCE DAILY topiramate 70507091006 Ria PEREZ-Jordana TOPIRAMATE 25 MG TABS Take 2 tablet by mouth once a day topiramate 85570239190 Ria Isaacs PA-C FERROUS GLUCONATE 324 (38 Fe) MG TABS TAKE 1 TABLET BY MOUTH ONCE DAILY AT NIGHT AT BEDTIME (WITH VITAMIN TABLET) ferrous gluconate 30378294965 Solitario Thursday FERROUS GLUCONATE 324 (38 Fe) MG TABS TAKE 1 TABLET BY MOUTH ONCE DAILY AT NIGHT AT BEDTIME ferrous gluconate 19966322975 Ria Isaacs PA-C TOPIRAMATE 25 MG TABS Take 1 tablet by mouth once a day TAKE ONE TABLET BY MOUTH ONCE DAILY topiramate 95742237089 Chris Carrillo MD FERROUS GLUCONATE 324 (38 Fe) MG TABS TAKE ONE TABLET BY MOUTH EVERY NIGHT AT BEDTIME (WITH VITAMIN TABLET) ferrous gluconate 94790890899 Solitario Thursday FERROUS GLUCONATE 324 (38 Fe) MG TABS TAKE 1 TABLET BY MOUTH ONCE DAILY AT NIGHT AT BEDTIME (WITH VITAMIN TABLET) ferrous gluconate 12560115514 Solitario Thursday Vitamin C 500 mg tablet Take 1 tablet by mouth at bedtime ascorbic acid (vitamin c) 19751696052 armando Thursday FERROUS GLUCONATE 324 (38 Fe) MG TABS TAKE ONE TABLET BY MOUTH EVERY NIGHT AT BEDTIME (WITH VITAMIN TABLET) ferrous marvinonate 28501744025 Solitario Thursday PREDNISONE 20 MG TABS prednisone 28266185263 Nubia Aguilar PA-C DIAZEPAM 5 MG TABS Take 5 mg 30 minutes prior to MRI. May repeat once. Must have a logging truck driver to and from test. diazepam 38781761112 Chris Carrillo MD TOPIRAMATE 25 MG TABS TAKE ONE TABLET BY MOUTH ONCE DAILY topiramate 59624425761 Chris Carrillo MD PREDNISONE 20 MG TABS prednisone 91419004298 Chris Carrillo MD CITALOPRAM HYDROBROMIDE 20 MG TABS citalopram 45442358516 Chris Carrillo MD Medications Administered No information [...] Release information to the Health Information Exchange (HIE) Telemedicine: Telemedicine V isit 3-4 mo flup mail MEDS REVIEW Done Documenta tion of current medications (procedure) Plan of Care Type Date Detail Appointment 12:20 PM Chris Carrillo MD , [address] [facility], [address], [place], [address], Pending order Follow up Sleep Pending order [...] Order ORDERS Patient Instructions ORDERS Ferritin Serum [id number]-[id number] Documentation of current medicatio ns ORDERS Follow up LIZZIE in clinic or telemedicine ORDERS Iron Sucrose Infusion Protocol for RLS 20 29/07/00 ORDERS Ferritin Serum [id number] Documentation of current medicatio ns ORDERS Patient Instructions ORDERS Follow up in clinic or telemedicine 04/01 ORDERS Sleep Consult ORDERS Instructions for Staff 01/10 [id number] Sleep Dentist Referral 2021 ORDERS Ferritin Serum ORDERS Iron & Total Iron-binding Capacity (TIBC) ORDERS Sleep Study - [facility] 0 CPT-66920 PSG, 4+ parameters w / tech - 6yrs or older (35916) ORDERS Follow up LIZZIE in clinic or telemedicine 2 CPT-C5039C ProHance Gadolinium- based MR Contrast - 15 ml vial CPT-64701 MRI Brain W/WO CPT-Y4063P ProHance Gadolinium- based MR Contrast - 15 ml vial [id number] MRI-Brain W/WO [facility]-[id number] Documentation of current medicatio ns ORDERS Patient Instructions Vital Signs Date Name Value Unit Description Weight Measured 140 [lb_av] weight E& M Weight Measured 140 [lb_av] weight E& M Immunizations No information available. Advance Directives No information available.
--- OUTSIDE RECORDS SUMMARY | 2024-09-12 10:24 | XMS_ITS | Clinical Summary ---
Author Organization [facility] Address [address] [place] [address] Care Team Providers Care Diabetologist Name Role Phone Grace Metz M.D. Primary Care Provider Source Comments Patient records contain information from all sites at [facility]. For routine questions regarding patient records, call [phone] during business hours, M-F 8:00 AM - 5:00 PM Central Time. Record requests for emergency care only can be directed to [phone] at any time.[facility] Allergies Active Allergy Reactions Criticality Noted Date Comments Amoxicillin GI intolerance 03/08/2018 Medications citalopram (CeleXA) 20 mg tablet Take 20 mg by mouth daily. 0 Active omeprazole (PriLOSEC) [address] capsule Take 20 mg by mouth every morning before breakfast. Active topiramate (TOPAMAX) 25 mg tablet Take 25 mg by mouth daily. 2 Active rizatriptan APPAREL MANUFACTURE INSTRUCTOR (MAXALT-APPAREL MANUFACTURE INSTRUCTOR) [address] 2 TABLETS [...] Department Care Team Description 08/09/2024 Orders Only [facility] Grace Metz M.D. Screening Lipid; Screening Mammogram Breast Cancer from Last 3 Months Immunizations Immunization Administration Dates Next Due DTP 10/18/1985 OPV 10/18/1985 SARS-COV-2 (COVID-19) - MODERNA(Discontinued) ,06/13/2020 Tdap 03/16/2013 Family History Medical History Relation Name Comments Coronary artery disease Father Lorenzo Skin cancer Father Lorenzo Anxiety disorder Paternal Grandmother [place] Depression Paternal Grandmother [place] ADD Son Herman Relation Name Status Comments Father Lorenzo Paternal Grandmother [place] Son Herman Social History Tobacco Use Types Packs/Day Years Used Date Smoking Tobacco: Heavy Smoker Cigarettes 1 5.7 Started: 12/21/2018 Smokeless Tobacco: Never Tobacco Cessation:Ready [...] your living situation today? I have a [facility] place to live 12/03/2022 Education Answer Date Recorded What is the highest level of school you have completed or the highest degree you have received? Some college, no degree 02/08/2019 Comments Unknown Sex and Gender Information Value Date Recorded Sex Assigned at Female 12/03/2022 12:53 PM CDT Legal Sex Female 6:44 AM COMPUTING CONSULTANT Gender Identity Female 11/21/2019 8:51 AM CDT [...] cm (5' 2.13) 03/18/2023 3 :24 PM COMPUTING CONSULTANT without shoes Body Mass Index 24.74 03/18/2023 3:24 PM COMPUTING CONSULTANT Plan of Treatment Health Maintenance Due Date [...] 2023-2 5 season) 2023 04/06/2021, 07/11/2020, 06/13/2020 Depression Screening (Annual PHQ-2) 03/09/2024 Tobacco Cessation counseling 10/20/2024, 03/18/2023 Influenza Vaccine (#1) 2024 , 12/08/2020, 12/14/2019 DTaP,Tdap,and Td Vaccines (4 - Td or Tdap) 01/08/2031 01/08/2021, 03/16/2013, 10/18/1985 HPV Vaccines Aged Out No longer eligi ble based on patient's age to complete [place] [id number] [facility] [place] [address] Care Teams Diabetologist Relationship Specialty Start Date End Date Grace Metz M.D. [address], [place] [phone] PCP - General Family Medicine 12/10/22
--- OUTSIDE RECORDS SUMMARY | 2024-09-12 10:24 | XMS_ITS | Clinical Summary ---
Author Organization [facility] Address [address] [place] [address] Care Team Providers Care Traffic Inspector Name Role Phone Clint Stevens MD Primary Care Provider [phone] Allergies Active Allergy Reactions Criticality Noted Date [...] on file Legal Sex Female 6:27 AM PRODUCT CONTROLLER Gender Identity Not on file Sexual Orientation [...] Health Maintenance Due Date Last Done Comments Tetanus booster 12/28/1990 Depression screening for age 12+ 1991 HIV for age 15-65 12/28/1994 Hepatitis C screening for age 18-79 12/28/1997 Hepatitis B series for 19+ (1 of 3 - 19+ 3-dose series) 12/28/1998 Pap test for age 21-65 12/28/2000 BMI (ht and wt on same day) for age 18+ 01/07/2020 01/06/2019, 11/22/2018, 08/27/2018, Additional history exists COVID-19 vaccine series (2023- season) 2023 04/06/2021, 07/11/2020, 06/13/2020 Influenza Vaccine (#1) 2024 Pneumococcal series for age 6-49 Aged Out No longer eligible based on patient's age to complete [place] [address] [place] [id number] PENDING SALE TO [employer] Care Teams Traffic Inspector Relationship Specialty Start Date End Date Clint Stevens MD PCP - General Family Practice 07/21/18
--- OUTSIDE RECORDS SUMMARY | 2024-09-12 10:24 | XMS_ITS | Clinical Summary ---
Author Organization [facility] Address [address] [place] [address] Care Team Providers Care [place] Name Role Phone Clint Stevens MD Primary Care Provider [phone] Social History Tobacco Use Types Packs/Day Years [...] Recently Relevant to Health Maintenance Care Teams [place] Relationship Specialty Start Date End Date Clint Stevens MD [facility] [address] [place] [address] PCP - General Family Practice 10/30/15
[2024-09-12 10:34] VITALS: BP 109/75; PULSE 72; RESP 18; TEMP 36.4; O2SAT 99; BMI 24.9
--- OUTSIDE RECORDS SUMMARY | 2024-09-12 11:21 | XMS_ITS | Clinical Summary ---
Author Organization [facility] Address [address] [facility] , [address] [place] [address] Phone Care Team Providers Care Floor Runner Name Role Phone System Maintenance Unavailable [phone] Conditions or Problems Problem Name Problem Code Onset Date Status Entry Date Provider Comment Standard Description Annotate Dizziness 850839751 (SNOMED CT) 11/12 Active 11/12 Xiomara Du APRN, CNP Dizziness New daily persistent headache 0733907782983 05 (SNOMED CT) 11/12 Active 11/12 Xiomara Du APRN, CNP New daily persistent headache Sleep deprivation 732130274 (SNOMED CT) 03/12 Active 03/12 Solitario Thursday Sleep deprivation Restless leg syndrome 65103531 (SNOMED CT) 03/12 Active 03/12 Solitario Thursday Restless legs Iron deficiency 04501572 (SNOMED CT) 03/12 Active 03/12 Solitario Thursday Iron deficiency Periodic limb movement disorder 215946929 (SNOMED CT) 10/30 Active Solitario Thursday Periodic limb movement disorder Obstructive sleep apnea 62634298 (SNOMED CT) 10/30 Active Solitario Thursday Obstructive sleep apnea syndrome Sleep apnea, evaluation 989420566 (SNOMED CT) 09/25 Active 09/25 Nubia Aguilar PA-C Procedure carried out on subject Insomnia 650433615 (SNOMED CT) 09/25 Active 09/25 Nubia PEREZ-C Insomnia Trigeminal neuralgia 52284807 (SNOMED CT) 07/26 Active 07/26 Chris Carrillo MD Trigeminal neuralgia Medications Medication Instructions Start Date Stop Date Generic Name NDC Provider TOPIRAMATE 50 MG TABS Take 1 tablet by mouth twice daily topiramate 92790448431 Kelsey PEREZ-Jordana TOPIRAMATE 50 MG TABS Take 1 tablet by mouth once daily topiramate 16404703088 Kelsey PEREZ-Jordana TOPIRAMATE 50 MG TABS Take 1 tablet by mouth twice a day topiramate 43325251713 Ria PEREZ-Jordana TOPIRAMATE 50 MG TABS Take 1 tablet by mouth twice daily topiramate 13514808576 Ria PEREZ-C TOPIRAMATE 50 MG TABS Take 1 tablet by mouth twice a day topiramate 11407924791 Chris Carrillo MD TOPIRAMATE 25 MG TABS Take 2 tablet by mouth once a day topiramate 96371632946 Yoana Stone RN, BSN TOPIRAMATE 25 MG TABS Take 1 tablet by mouth once a day TAKE ONE TABLET BY MOUTH ONCE DAILY topiramate 00972035721 Ria PEREZ-Jordana TOPIRAMATE 25 MG TABS Take 2 tablet by mouth once a day topiramate 58841483750 Ria Isaacs PA-C FERROUS GLUCONATE 324 (38 Fe) MG TABS TAKE 1 TABLET BY MOUTH ONCE DAILY AT NIGHT AT BEDTIME (WITH VITAMIN TABLET) ferrous gluconate 38545245058 Solitario Thursday FERROUS GLUCONATE 324 (38 Fe) MG TABS TAKE 1 TABLET BY MOUTH ONCE DAILY AT NIGHT AT BEDTIME ferrous gluconate 18769423049 Ria Isaacs PA-C TOPIRAMATE 25 MG TABS Take 1 tablet by mouth once a day TAKE ONE TABLET BY MOUTH ONCE DAILY topiramate 86242867003 Chris Carrillo MD FERROUS GLUCONATE 324 (38 Fe) MG TABS TAKE ONE TABLET BY MOUTH EVERY NIGHT AT BEDTIME (WITH VITAMIN TABLET) ferrous gluconate 74098517426 Solitario Thursday FERROUS GLUCONATE 324 (38 Fe) MG TABS TAKE 1 TABLET BY MOUTH ONCE DAILY AT NIGHT AT BEDTIME (WITH VITAMIN TABLET) ferrous gluconate 73088627867 Solitario Thursday Vitamin C 500 mg tablet Take 1 tablet by mouth at bedtime ascorbic acid (vitamin c) 80126197705 armando Thursday FERROUS GLUCONATE 324 (38 Fe) MG TABS TAKE ONE TABLET BY MOUTH EVERY NIGHT AT BEDTIME (WITH VITAMIN TABLET) ferrous marvinonate 00404021569 Solitario Thursday PREDNISONE 20 MG TABS prednisone 51894442089 Nubia Aguilar PA-C DIAZEPAM 5 MG TABS Take 5 mg 30 minutes prior to MRI. May repeat once. 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 diazepam 67282603303 Chris Carrillo MD TOPIRAMATE 25 MG TABS TAKE ONE TABLET BY MOUTH ONCE DAILY topiramate 10408976414 Chris Carrillo MD PREDNISONE 20 MG TABS prednisone 19202242460 Chris Carrillo MD CITALOPRAM HYDROBROMIDE 20 MG TABS citalopram 50854268712 Chris Carrillo MD Medications Administered No information [...] 12:20 PM Chris Carrillo MD , [address] [facility], [address], [place], [address], Pending order Follow up Sleep Pending order [...] Order ORDERS Patient Instructions ORDERS Ferritin Serum [id number] Documentation of current medicatio ns ORDERS Follow up LIZZIE in clinic or telemedicine ORDERS Iron Sucrose Infusion Protocol for RLS 20 29/07/00 ORDERS Ferritin Serum [id number] Documentation of current medicatio ns ORDERS Patient Instructions ORDERS Follow up in clinic or telemedicine 04/01 ORDERS Sleep Consult ORDERS Instructions for Staff 01/10 [id number] Sleep Dentist Referral 2021 ORDERS Ferritin Serum ORDERS Iron & Total Iron-binding Capacity (TIBC) ORDERS Sleep Study - [facility] 0 CPT-92821 PSG, 4+ parameters w / tech - 6yrs or older (48107) ORDERS Follow up LIZZIE in clinic or telemedicine 2 CPT-J7312C ProHance Gadolinium- based MR Contrast - 15 ml vial CPT-62865 MRI Brain W/WO CPT-J1733T ProHance Gadolinium- based MR Contrast - 15 ml vial [id number] MRI-Brain W/WO [facility]-[id number] Documentation of current medicatio ns ORDERS Patient Instructions Vital Signs Date Name Value Unit Description Weight Measured 140 [lb_av] weight E& M Weight Measured 140 [lb_av] weight E& M Immunizations No information available. Advance Directives No information available.
== END 2024-09-12 11:23 | disposition left against medical advice (07) ==
LOC: ED 11:19
PROVIDERS: Emergency Provider Emergency Medicine
DX: Z53.21 Procedure and treatment not carried out due to patient leaving prior to being seen by health care provider (principal)
CPT/HCPCS: 99281